=== PATIENT | male | born 1960 | race African-American/Black ===

== ENCOUNTER 2020-08-03 17:35 | Emergency (ER) | payer MEDICAID ==
[~2020-08-03] VITALS: Ht 190.5 cm; Wt 99.8 kg
--- NOTE | 2020-08-03 18:00 | NUR ---
The patient bibs for c/o suicidal ideation with no plan. Was discharged from [facility] today. The patient denies HI. Denies pain. In room air and denies SOB. Respiration regular and unlabored. Safety check done. Will continue to monitor the patient.
[2020-08-03 18:34] LABS: BASOPHILS % (AUTO) 0.5 % (0.0-2.0); EOSINOPHILS % (AUTO) 1.1 % (0.0-6.0); HEMATOCRIT 43 % (39-51); HEMOGLOBIN 13.8 g/dL (13.5-17.5); LYMPHOCYTES # (AUTO) 2.1 /CMM (0.8-4.8); LYMPHOCYTES % (AUTO) 27.7 % (20.0-44.0); MEAN CORPUSCULAR HGB CONC 32 g/dl (31.0-36.0); MEAN CORPUSCULAR VOLUME 84 fL (80-96); MONOCYTES # (AUTO) 0.6 /CMM (0.1-1.30); MONOCYTES % (AUTO) 8.5 % (2.0-12.0); NEUTROPHILS # (AUTO) 4.7 /CMM (1.8-8.9); NEUTROPHILS % (AUTO) 62.2 % (43.0-81.0); PLATELET COUNT (AUTO) 192 /CMM (150-450); RED BLOOD CELL COUNT(AUTO) 5.13 MIL/uL (4.5-6.0); WHITE BLOOD COUNT (AUTO) 7.5 K/uL (4.3-11.0)
[2020-08-03 18:35] LABS: BILIRUBIN,URINE Negative (NEGATIVE); COLOR,URINE YELLOW (YELLOW); LEUKOCYTE ESTERASE ,URINE Negative (NEGATIVE); NITRITE, URINE Negative (NEGATIVE); PROTEIN,URINE Negative (NEGATIVE); UGLUCOSE Negative (NEGATIVE); UROBILINOGEN,URINE 0.2 EU/dL (0.2)
[2020-08-03 18:47] LABS: CALCIUM, SERUM 9.3 mg/dL (8.5-10.1); CARBON DIOXIDE 32 mmol/L (21-32); CHLORIDE 105 mmol/L (98-107); CREATININE 1.1 mg/dL (0.6-1.3); GLUCOSE 96 mg/dL (74-106); POTASSIUM 4.4 mmol/L (3.5-5.1); SODIUM SERUM 144 mmol/L (136-145); UREA NITROGEN, BLOOD 18 mg/dL (7-18)
[2020-08-03 18:57] LABS: ACETAMINOPHEN < 2 ug/ml (10-30); ALANINE AMINOTRANSFERASE 20 U/L (12-78); ALKALINE PHOSPHATASE 61 U/L (46-116); ASPARTATE AMINOTRANSFERASE 15 U/L (15-37); BILIRUBIN,DIRECT 0.1 mg/dL (0.0-0.2); BILIRUBIN,TOTAL 0.6 mg/dL (0.2-1.0); TOTAL PROTEIN, SERUM 7.6 g/dL (6.4-8.2)
[2020-08-03 18:58] LABS: ALCOHOL, BLOOD < 3 mg/dL (0-0)
--- NOTE | 2020-08-03 20:44 | NUR ---
CHEPEID SWABBED, SENT TO LAB.
--- NOTE | 2020-08-03 21:58 | NUR ---
FAX PACKET TO [phone] FAX # LATISHA WILL CALL FOR INFO
--- NOTE | 2020-08-03 22:06 | NUR ---
FAXED FACE SHEET AND CLINICALS TO [facility]
--- NOTE | 2020-08-03 22:44 | NUR ---
TAKES AMLODIPINE 10MG MORNING NEBIVOLOL 10MG PO ONCE LOSARTAN 100MG PO ONCE
--- NOTE | 2020-08-03 23:16 | NUR ---
KEZIA FROM [facility] INTAKE REQUESTING FOR COVID PCR; PT NOT A PUI, FACILITY JUST REQUESTING FOR PCR COVID. TEMITOPE ROSAS AWARE
--- NOTE | 2020-08-04 00:36 | NUR ---
MD [facility] ROOM [id number] [phone] NUMBER FOR REPORT. [phone] LATISHA'S NUMBER
--- NOTE | 2020-08-04 00:43 | NUR ---
REPORT GIVEN TO JOSEPH COLINDRES FOR [facility]. WILL CALL HER BACK FOR ETA.
--- NOTE | 2020-08-04 01:00 | NUR ---
CALLED [facility], SPOKE AND AZEEM AND WAS ON HOLD FOR >30MIN, PER AZEEM THEY'RE NOT ABLE TO PROVIDE THE TRANSPORTATION
--- NOTE | 2020-08-04 01:04 | NUR ---
CALLED [facility] , SPOKE TO ADRIAN AND ARRANGED TRASPORTATION W/ ETA: 90 MIN
--- NOTE | 2020-08-04 02:26 | NUR ---
[facility] AT BED SIDE TO [facility] DEPOSIT CLERK THE PT
[2020-08-04 02:37] VITALS: BP 143/88
== END 2020-08-04 02:38 ==
LOC: ER 17:42
DX: R45.851 Suicidal ideations (principal); Z20.822 Contact with and (suspected) exposure to COVID-19; I10 Essential (primary) hypertension
CPT/HCPCS: 36415; 80048; 80076; 80143; 80307; 80320; 81003; 85025; 87426; 99285; C9803; U0003; G0480